=== PATIENT | female | born 1950 ===

== ENCOUNTER 2019-10-22 16:14 | Outpatient (REF) | payer MEDICARE, BC, SELFPAY ==
--- NOTE | 2019-10-22 15:00 | PAPFT_PTH ---
PATIENT: MACHELLE KIRBY LOC: [facility] #:[id number] AGE/SX: 69/F ROOM: RE10/22/[address]: Yuli Vasquez : 1950 BED: DIS: 10/22/2019 SPEC #: [id number] RECD: 10/22/19 16:54 STATUS: SOPHIE REHakan #: [id number] RAYSHAWN: 10/22/19 15:[address]: Yuli Vasquez DEPT: [facility] Cytology RECD BY: Gilda Sotelo Tissues: 1 - CX/ENDOCX FOR PAP SMEARS Procedures: PAP THIN PREP/[facility] Screening HPV DNA PROBE Comments: [id number]
== END 2019-10-22 16:34 ==
LOC: LBN 16:14
PROVIDERS: Visit Provider Obstetrics & Gynecology Gynecology
DX: Z12.4 Encounter for screening for malignant neoplasm of cervix (principal); Z11.51 Encounter for screening for human papillomavirus (HPV)
CPT/HCPCS: 88142; 87624